=== PATIENT | female | born 1970 | race American Indian/Alaskan Native ===

== ENCOUNTER 2019-06-16 10:33 | Emergency (ER) | payer OTHER ==
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
[2019-06-16 11:59] VITALS: BP 187/102
--- NOTE | 2019-06-16 12:53 | XRay Report ---
XR spine lumbosacral 2-3V INDICATION / CLINICAL INFORMATION: low back pain. COMPARISON: None available. FINDINGS: BONES/JOINT(S): No vertebral fracture. Overall normal alignment. Mild disc height loss at L4-5 and L5 -S1 with reactive endplate sclerosis and osteophyte formation. No aggressive appearing bone lesion. SOFT TISSUES: No significant abnormality. ADDITIONAL FINDINGS: None. Signer Name: Andrez Barillas MD Signed: 06/16/2019 12:49 PM Workstation Name: [id number]
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
== END 2019-06-16 15:35 | disposition home or self-care (01) ==
LOC: ED 10:33
DX: M54.5 Low back pain (principal); Z79.899 Other long term (current) drug therapy; V49.59XA Passenger injured in collision with other motor vehicles in traffic accident, initial encounter; Y93.89 Activity, other specified; Y92.410 Unspecified street and highway as the place of occurrence of the external cause; Y99.8 Other external cause status
CPT/HCPCS: 72100